=== PATIENT | female | born 1965 | race Caucasian/White ===

== ENCOUNTER 2021-09-19 08:56 | Outpatient (REF) | payer OTHER, SELFPAY ==
--- NOTE | 2021-09-19 14:56 | MHC.AU.AEV ---
Adult Audiological Evaluation Date of Visit: 09/19/21 Reason for Appointment: Patient has been experiencing hearing difficulty. She has been asking people for repetition more frequently. She reports that while she can hear people talking, it does not always sound clear. She feels the right ear is worse than her left ear. She cannot recall any particular incidents that have happened on the right side, such as injury or severe infection. Has hearing been tested previously?: No Hearing Handicap Inventory Does a hearing problem cause you to feel embarrassed when meeting new people?: Sometimes Does a hearing problem cause you to feel frustrated when talking to members of your family?: Sometimes Do you have difficulty when someone speaks in a whisper?: Yes Do you feel handicapped by a hearing problem?: Sometimes Does a hearing problem cause you difficulty when visiting friends, relatives, or neighbors?: Sometimes Does a hearing problem cause you to attend baptism service services less often than you would like?: Sometimes Does a hearing problem cause you to have arguments with family members?: No Does a hearing problem cause you difficulty when listening to TV or radio?: Sometimes Do you feel that any difficult with your hearing limits or hampers your personal or social life?: Sometimes Does a hearing problem cause you difficulty when in a restaurants with relatives or friends?: Sometimes HHIE SCORE: 20 Based on HHIE score, patient has: Mild to moderate perceived hearing handicap Ear History: Ear Deformity: None Reported Recent Ear Drainage: None Reported Recent Ear Pain: None Reported Family History of Hearing Loss?: Yes: Father Recent Ear Infections: None Reported Ear Infections in Childhood: None Reported History of Ear Wax Buildup: None Reported Previous Ear Surgery: None Reported Bothersome Tinnitus/Ringing/Noises in Ears: None Reported Ear used on the phone: Right Ear Blocked/Full Sensation in Ear(s): None Reported History of occupational noise exposure?: No History: No Medical History: Medical History: Glaucoma Medication List: Latanoprost (eye drops for glaucoma), Citalopram Otoscopy: Right Ear: Tympanic membrane is cloudy. Distinctly different appearance than left tympanic membrane. Left Ear: Unremarkable Tympanometry: Tympanometry performed due to: To assess integrity of the middle ear system Right Ear: Hypercompliant Middle Ear System (Type Ad) Left Ear: Normal Middle Ear System (Type A) Hearing Evaluation: Transducer(s) Used: Insert Earphones Method: Conventional Audiometry Stimuli Used: Pure Tones Right Ear: Description of Hearing: Moderate rising to mild and sloping to moderately-severe mixed hearing loss Left Ear: Description of Hearing: Mild to moderate sensorineural hearing loss Speech Recognition Threshold (SRT): Method Used: Recorded Lists Stimuli Used: Spondee Words Right Ear: 40 dBHL Left Ear: 30 dBHL Word Discrimination: Method: Recorded Lists Word Lists Used:: W-22 Right Ear: 96% at 80 dBHL Left Ear: 96% at 70 dBHL Recommendations: Referral to Ear, Nose, and Throat is highly recommended to address newly diagnosed asymmetrical mixed hearing loss. If after Ear, Nose, and Throat consultation (and management/treatment if needed) the patient is interested in hearing aids, she is welcome to schedule a hearing aid evaluation. Diagnosis: Primary Diagnosis: H90.A31 Mixed HL, Unilateral Right Ear, W/Restricted Contralateral Signature: Provider: Palak Lynn, CCC-A
== END 2021-09-19 08:57 | disposition home or self-care (01) ==
LOC: HO.SH 08:56
PROVIDERS: Visit Provider Internal Medicine
DX: Z01.118 Encounter for examination of ears and hearing with other abnormal findings (principal); H90.A31 Mixed conductive and sensorineural hearing loss, unilateral, right ear with restricted hearing on the contralateral side
CPT/HCPCS: 92557; 92567

== ENCOUNTER 2022-10-10 12:40 | Outpatient (REF) | payer SELFPAY ==
--- NOTE | 2022-10-16 10:45 | MHC.AU.HA1 ---
Hearing Aid Evaluation Date of Visit: 10/10/22 Historical Information: Description of Hearing: Right: Moderate/moderately-severe rising to mild and sloping to moderately-severe mixed hearing loss Left: Borderline/mild sloping to moderate sensorineural hearing loss Summary: Patient is interested in amplification. Hearing aid options were discussed. A pair of Phonak Audeo trials were demoed to see if a pair or just a right-sided hearing aid would be preferrable. Patient did not notice a significant improvement with the left hearing aid at this time; therefore, we will proceed with just a right hearing aid. She is interested in a rechargeable option. Hearing Aid Prescription: Based on the individual?s shared listening needs, communication environments, dexterity, desire for connectivity, and personal preferences, the following prescription for amplification has been made: Right ear: Make, Model, Color: Phonak Audeo L50-R, Beige Battery Size: Rechargeable Locomotive Mechanic/Slim Tube: 1M Action Taken/Action Needed: Hearing Instrument Fitting to be scheduled when materials arrive Paid $350 fitting fee Primary Diagnosis: H90.3 Bilateral Sensorineural Hearing Loss Signature: Provider: Stew Lynn, [facility]
== END 2022-10-10 12:41 | disposition home or self-care (01) ==
LOC: HO.HAP 12:40
PROVIDERS: Visit Provider Internal Medicine
DX: Z46.1 Encounter for fitting and adjustment of hearing aid (principal); H90.3 Sensorineural hearing loss, bilateral
CPT/HCPCS: 92590

== ENCOUNTER 2022-11-07 13:34 | Outpatient (REF) | payer OTHER, SELFPAY | END 2022-11-07 13:35 | disposition home or self-care (01) | LOC: HO.HAP 13:34 | PROVIDERS: Visit Provider Internal Medicine | DX: Z46.1 Encounter for fitting and adjustment of hearing aid (principal); H90.3 Sensorineural hearing loss, bilateral | CPT/HCPCS: V5257; V5299 ==

== ENCOUNTER 2022-11-22 11:11 | Outpatient (REF) | payer SELFPAY | END 2022-11-22 11:12 | disposition home or self-care (01) | LOC: HO.HAP 11:11 | PROVIDERS: Visit Provider Internal Medicine | DX: Z13.89 Encounter for screening for other disorder (principal) ==